=== PATIENT | male | born 1945 | race Caucasian/White ===

== ENCOUNTER 2022-08-04 09:51 | Outpatient (CLI) | payer BC, MEDICARE | END 2022-08-04 09:52 | disposition home or self-care (01) | LOC: TBSIIMAG 09:51 | PROVIDERS: ATTEND Neurological Surgery | DX: S32.009A Unspecified fracture of unspecified lumbar vertebra, initial encounter for closed fracture (principal) | CPT/HCPCS: 72100 ==